=== PATIENT | female | born 1985 | race African-American/Black ===

== ENCOUNTER 2021-08-06 02:59 | Emergency (ER) | payer MEDICAID ==
[~2021-08-06] VITALS: Ht 170.2 cm; Wt 90.0 kg
[2021-08-06] MEDS ORDERED: PHEN100C4 MT (04:34)
[2021-08-06 05:34] VITALS: BP 121/84
== END 2021-08-06 05:36 | disposition home or self-care (01) ==
LOC: ER 02:59
DX: Z76.0 Encounter for issue of repeat prescription (principal); R56.9 Unspecified convulsions; F31.9 Bipolar disorder, unspecified
CPT/HCPCS: 99283